=== PATIENT | female | born 1960 | race Caucasian/White ===

== ENCOUNTER 2021-04-29 13:23 | Outpatient (CLI) | payer OTHER | END 2021-04-29 13:24 | disposition home or self-care (01) | LOC: CSHMAMMO 13:23 | PROVIDERS: ATTEND Emergency Medicine | DX: Z12.31 Encounter for screening mammogram for malignant neoplasm of breast (principal) | CPT/HCPCS: 77063; 77067 ==

== ENCOUNTER 2021-04-29 13:50 | Outpatient (CLI) | payer OTHER | END 2021-04-29 13:51 | disposition home or self-care (01) | LOC: CSHULT 13:50 | PROVIDERS: ATTEND Emergency Medicine | DX: E06.3 Autoimmune thyroiditis (principal); E07.9 Disorder of thyroid, unspecified; E01.0 Iodine-deficiency related diffuse (endemic) goiter | CPT/HCPCS: 76536 ==

== ENCOUNTER 2023-06-09 07:46 | Outpatient (CLI) | payer BC | END 2023-06-09 07:47 | disposition home or self-care (01) | LOC: CSHULT 07:46 | PROVIDERS: ATTEND Emergency Medicine | DX: E03.9 Hypothyroidism, unspecified (principal); E06.3 Autoimmune thyroiditis; E07.9 Disorder of thyroid, unspecified | CPT/HCPCS: 76536 ==

== ENCOUNTER 2023-06-16 07:52 | Outpatient (CLI) | payer BC | END 2023-06-16 07:53 | disposition home or self-care (01) | LOC: CSHMAMMO 07:52 | PROVIDERS: ATTEND Family Medicine | DX: N64.89 Other specified disorders of breast (principal) | CPT/HCPCS: G0279 ==